=== PATIENT | female | born 1985 | race American Indian/Alaskan Native ===

== ENCOUNTER 2020-09-08 10:00 | Emergency (ER) | payer OTHER ==
[2020-09-08 10:08] VITALS: BP 146/93
--- NOTE | 2020-09-08 10:39 | Emergency Department Report ---
Blank Doc - Documentation Documentation: This is a 34-year-old female that presents with sore throat, nausea vomiting, abdominal pain and blood in stool times several days. 1- This initial assessment/diagnostic orders/clinical plan/ treatment(s) is/are subject to change based on pt's health status, clinical progression and re- assessment by fellow clinical providers in the ED. Further treatment and workup at subsequent clinical provers discretion. Patient/guardians urged not to elope from ED as their condition may be serious if not clinically assessed and managed. 2-labs 3-UA
[2020-09-08 11:31] LABS: Basophils # (Auto) 0.1 K/mm3 (0.0-0.1); Basophils % (Auto) 1.1 % (0.0-1.8); Eosinophils % (Auto) 0.1 % (0.0-4.3); Hematocrit 40.4 % (30.3-42.9); Hemoglobin 13.6 gm/dl (10.1-14.3); Lymphocytes # (Auto) 1.1 K/mm3 (1.2-5.4); Lymphocytes % (Auto) 21.6 % (13.4-35.0); Mean Corpuscular HGB Conc 34 % (30-34); Mean Corpuscular Volume 84 fl (79-97); Monocytes # (Auto) 0.7 K/mm3 (0.0-0.8); Monocytes % (Auto) 13.9 % (0.0-7.3); Platelet Count 256 K/mm3 (140-440); Red Blood Count 4.83 M/mm3 (3.65-5.03); Red Cell Distribution Width 13.1 % (13.2-15.2)
[2020-09-08 12:19] LABS: Alanine Aminotransferase 51 units/L (7-56); Albumin 4.2 g/dL (3.9-5); BUN/Creatinine Ratio 7; Blood Urea Nitrogen 8 mg/dL (7-17); Calcium 8.8 mg/dL (8.4-10.2); Hemolysis Index 3
--- NOTE | 2020-09-08 13:52 | Emergency Department Report ---
HPI - General Chief Complaint: GI Bleed Time Seen by Provider: 09/08/20 10:08 - HPI HPI: Room 39 The patient is a 34-year-old female present with a chief complaint of sore throat and blood in stool. The patient states for the past 2 weeks she has had a sore throat. Patient states last night she developed subjective fever and chills. The patient states for the past week she has noticed blood in her stool and she has had rectal pain with bowel movements. Patient denies coffee-ground emesis. ED Past Medical Hx - Past Medical History Previous Medical History?: No - Surgical History Past Surgical History?: No - Family History Family history: no significant - Social History Smoking Status: Current Some Day Smoker (Occasional) Substance Use Type: Alcohol (Moderate), Marijuana - Medications Home Medications: Home Medications Medication Instructions Recorded Confirmed Last Taken Type Amoxicillin [Amoxicillin TAB] 875 mg PO BID #14 tablet 09/08/20 Unknown Rx traMADoL [Ultram] 50 mg PO Q6HR PRN #10 tablet 09/08/20 Unknown Rx ED Review of Systems ROS: Stated complaint: FEVER, ABD PAINS Other details as noted in HPI Constitutional: chills, fever (Subjective) Eyes: denies: eye pain ENT: throat pain Respiratory: no symptoms reported Cardiovascular: denies: chest pain Endocrine: no symptoms reported Gastrointestinal: hematochezia Genitourinary: denies: dysuria Musculoskeletal: denies: back pain Physical Exam - Physical Exam Vital Signs: Vital Signs 09/08/20 10:05 Temperature 98.4 F Pulse Rate 97 H Respiratory 16 Rate Blood Pressure 146/93 [Left] Physical Exam: GENERAL: The patient is well-developed well-nourished female lying on stretcher not appearing to be in acute distress. [] HEENT: Normocephalic. Atraumatic. Extraocular motions are intact. 2+ right tonsil, 1+ left tonsil. No exudates seen NECK: Supple. There is no stridor CHEST/LUNGS: Clear to auscultation. There is no respiratory distress noted. HEART/CARDIOVASCULAR: Regular. There is no tachycardia. There is no gallop rub or murmur. ABDOMEN: Abdomen is soft, nontender. Patient has normal bowel sounds. There is no abdominal distention. SKIN: There is no rash. There is no edema. There is no diaphoresis. NEURO: The patient is awake, alert, and oriented. The patient is cooperative. The patient has no focal neurologic deficits. The patient has normal speech MUSCULOSKELETAL: There is no evidence of acute injury. RECTAL: No external hemorrhoids visualized. No internal hemorrhoids palpated. Faint guaiac positive ED Course Vital Signs 09/08/20 10:05 Temperature 98.4 F Pulse Rate 97 H Respiratory 16 Rate Blood Pressure 146/93 [Left] ED Medical Decision Making - Lab Data Result diagrams: 09/08/20 11:20 09/08/20 11:20 - Differential Diagnosis Tonsillitis, hemorrhoid, GI bleed Critical care attestation.: If time is entered above; I have spent that time in minutes in the direct care of this critically ill patient, excluding procedure time. ED Disposition Clinical Impression: Tonsillitis, Rectal bleeding Disposition: - TO HOME OR SELFCARE Is pt being admited?: No Does the pt Need Aspirin: No Condition: Stable Instructions: Rectal Bleeding, Tonsillitis Additional Instructions: Return to the emergency department should you develop worsening symptoms, inability to tolerate food or liquids, high fever or any other concerns Prescriptions: Amoxicillin [Amoxicillin TAB] 875 mg PO BID #14 tablet traMADoL [Ultram] 50 mg PO Q6HR PRN #10 tablet PRN Reason: Pain Referrals: PRIMARY CARE,MD [Primary Care Provider] - 3-5 Days SOPHY POSEY MD [Staff Physician] - 3-5 Days (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 Please follow-up with him for further evaluation) Forms: Accompanied Note Time of Disposition: 14:34
== END 2020-09-08 14:58 | disposition home or self-care (01) ==
LOC: ED 10:00
DX: J03.90 Acute tonsillitis, unspecified (principal); K62.5 Hemorrhage of anus and rectum; F17.200 Nicotine dependence, unspecified, uncomplicated; F12.10 Cannabis abuse, uncomplicated; Z79.899 Other long term (current) drug therapy
CPT/HCPCS: 36415; 80053; 82271; 83690; 84703; 85025; 99283